=== PATIENT | female | born 1950 | race Caucasian/White ===

== ENCOUNTER 2017-01-23 20:04 | Emergency (ER) | payer BC ==
[2017-01-23] MEDS ORDERED: TETANUS/DIPHTHERIA/PERTUSSIS 0.5 ML SYRINGE IM ONE ×2 (20:27→20:40)
== END 2017-01-23 20:48 | disposition home or self-care (01) ==
DX: S61.215A Laceration without foreign body of left ring finger without damage to nail, initial encounter (principal); R03.0 Elevated blood-pressure reading, without diagnosis of hypertension; W27.4XXA Contact with kitchen utensil, initial encounter